=== PATIENT | male | born 1945 | race Caucasian/White ===

== ENCOUNTER 2017-03-10 18:46 | Inpatient (IN) | payer MEDICARE, OTHER ==
[~2017-03-10] VITALS: Ht 175.3 cm; Wt 91.7 kg
--- NOTE | 2017-03-10 19:00 | NUR ---
to bed [facility] c/o syncope and R knee, R ankle pain per emt transport report. per report pt has been falling due to unsteady gait. pt aaox3 no acute distress noted, resp even and unlabored. place pt on cardiac monitoring, continuous pox. pending er md kyle.
[2017-03-10 19:13] LABS: BASOPHILS % (AUTO) 0.5 % (0.0-2.0); EOSINOPHILS # (AUTO) 0.3 /CMM (0.0-0.7); EOSINOPHILS % (AUTO) 3.6 % (0.0-6.0); HEMATOCRIT 41 % (39-51); HEMOGLOBIN 13.7 g/dL (13.5-17.5); LYMPHOCYTES # (AUTO) 2.1 /CMM (0.8-4.8); LYMPHOCYTES % (AUTO) 28.4 % (20.0-44.0); MEAN CORPUSCULAR HEMOGLOBIN 31 PG (26.0-33.0); MEAN CORPUSCULAR HGB CONC 34 g/dl (31.0-36.0); MEAN CORPUSCULAR VOLUME 92 fL (80-96); MONOCYTES # (AUTO) 0.6 /CMM (0.1-1.30); MONOCYTES % (AUTO) 8.1 % (2.0-12.0); NEUTROPHILS # (AUTO) 4.4 /CMM (1.8-8.9); NEUTROPHILS % (AUTO) 59.4 % (43.0-81.0); PLATELET COUNT (AUTO) 199 /CMM (150-450); RDW COEFFICIENT OF VARIATION 13.4 (11.5-15.0); RED BLOOD CELL COUNT(AUTO) 4.42 MIL/uL (4.5-6.0); WHITE BLOOD COUNT (AUTO) 7.5 K/uL (4.3-11.0)
[2017-03-10] MEDS ORDERED: GABA-534 PO (19:22)
[2017-03-10] MEDS ORDERED: AMMO385C4 TP (19:22)
[2017-03-10] MEDS ORDERED: BENZ1TAB7 PO (19:22)
[2017-03-10] MEDS ORDERED: ESOM40CA PO (19:22)
[2017-03-10] MEDS ORDERED: ARIP2TAB9 PO (19:22)
[2017-03-10] MEDS ORDERED: MELO-270 PO (19:22)
[2017-03-10] MEDS ORDERED: TEMA15CA PO (19:22)
[2017-03-10] MEDS ORDERED: ESCI10TA PO (19:22)
[2017-03-10] MEDS ORDERED: ACET-2605 PO (19:22)
[2017-03-10] MEDS ORDERED: ASPI-991 PO (19:22)
[2017-03-10] MEDS ORDERED: TRAM50TA2 PO (19:22)
[2017-03-10] MEDS ORDERED: LOSA100T15 PO (19:22)
[2017-03-10] MEDS ORDERED: SAXA5TAB PO (19:22)
[2017-03-10] MEDS ORDERED: DULO30CA2 PO (19:22)
[2017-03-10] MEDS ORDERED: ATOR10TA PO (19:22)
[2017-03-10] MEDS ORDERED: METF500T7 PO (19:22)
[2017-03-10 19:33] LABS: CALCIUM, SERUM 8.5 mg/dL (8.5-10.1); CARBON DIOXIDE 26 mmol/L (21-32); CHLORIDE 105 mmol/L (98-107); CREATININE 1.3 mg/dL (0.6-1.3); GLUCOSE 206 mg/dL (74-106); POTASSIUM 4.3 mmol/L (3.5-5.1); SODIUM SERUM 141 mmol/L (136-145); UREA NITROGEN, BLOOD 20 mg/dL (7-18)
[2017-03-10 19:40] LABS: ALANINE AMINOTRANSFERASE 20 U/L (12-78); ALBUMIN 3.6 g/dL (3.4-5.0); ALKALINE PHOSPHATASE 221 U/L (46-116); ASPARTATE AMINOTRANSFERASE 14 U/L (15-37); BILIRUBIN,DIRECT 0.1 mg/dL (0.0-0.2); BILIRUBIN,TOTAL 0.5 mg/dL (0.2-1.0); TOTAL PROTEIN, SERUM 6.8 g/dL (6.4-8.2); TROPONIN I < 0.017 ng/mL (0.00-0.056)
[2017-03-10 19:42] LABS: INR 0.95 (0.87-1.13); PROTHROMBIN TIME 10.1 SECS (9.5-12.7)
--- NOTE | 2017-03-10 20:12 | NUR ---
ct result received. er md made aware. pending disposition.
--- NOTE | 2017-03-10 20:17 | NUR ---
lower extremity duplex done.
--- NOTE | 2017-03-10 20:22 | NUR ---
PANEL CALLED FOR ADMIT. AWAITING CALL FROM ADMIT
--- NOTE | 2017-03-10 20:23 | NUR ---
report called to telephone sales agentarabella crump. pending hospital admission.
[2017-03-10 20:35] VITALS: BP 115/69
--- NOTE | 2017-03-10 20:35 | NUR ---
RN NOTES ADMITTED A 71 YEARS OLD, MALE PT FROM ER VIA [facility] WITH PRIMARY DIAGNOSIS OF SYNCOPE UNDER DR LEI. PT ALERT AND ORIENTED X3, PAIN ON RIGHT KNEE AND ANKLE AT TOLERABLE LEVEL AT THIS TIME. DENIES CHEST PAIN, NO SOB, NOT IN DISTRESS, ON ROOM AIR WITH GOOD SATURATION. ATTACHED TO TELE MONITOR WHICH READS SINUS RHYTHM WITH HEART RATE AT 66. VITAL SIGNS STABLE, AFEBRILE, DENIES NAUSEA AND VOMITING. INITIAL PHYSICAL ASSESSMENT DONE, SKIN CLEAR AND INTACT. PT ABLE TO TRANSFER FROM [facility] TO BED WITH MINIMAL ASSIST. KEPT BED IN THE LOWEST POSITION, LOCKED, SIDE RAILS X2 UP, BED ALARM ON, WITH CALL LIGHT WITHIN REACH. KEPT COMFORTABLE AND ATTENDED. WILL CONTINUE TO MONITOR PT. CALLED DR LEI FO ADMITTING ORDERS, AWAITING FOR RETURN CALL.
[2017-03-10 21:00] VITALS: BP 115/69
[2017-03-10] MEDS ORDERED: TRAMADOL HCL 50 MG TABLET PO PRN (22:30)
[2017-03-10] MEDS ORDERED: TEMAZEPAM 15 MG CAPSULE PO PRN (22:30)
--- NOTE | 2017-03-10 22:30 | NUR ---
RN NOTES ADMISSION ORDERS RECEIVED, NOTED AND CARRIED OUT.
[2017-03-10] MEDS ORDERED: IV 1/2NS 1000 ML 1,000 ML IV ONE (22:44)
[2017-03-10] MEDS ORDERED: IV SET PRIMARY PUMP SET 1 EA INFUS.SET MC ONE (22:44)
[2017-03-10] MEDS: IV 1/2NS 1000 ML 1,000 ML IV PRN (22:50)
[2017-03-10] MEDS ORDERED: POLYETHYLENE GLYCOL 3350 17 GM POWD.PACK PO PRN (23:00)
[2017-03-10] MEDS ORDERED: DEXTROSE 50%-WATER 50 ML DISP.SYRIN IV PRN (23:00)
[2017-03-10] MEDS ORDERED: MORPHINE SULFATE INJ 2 MG/ML DISP.SYRIN IV PRN (23:00)
[2017-03-10] MEDS ORDERED: ZOLPIDEM TARTRATE 5 MG TABLET PO PRN (23:00)
--- NOTE | 2017-03-10 23:30 | NUR ---
RN NOTES VISITED BY DR LEI, SEEN AND EXAMINED PT. NO NEW ORDERS MADE.
[2017-03-10] MEDS ORDERED: ACETAMINOPHEN 325 MG TABLET ONE (23:34)
[2017-03-10] MEDS: ACETAMINOPHEN 325 MG TABLET PO PRN (23:38)
[2017-03-11] VITALS (10 sets, daily range): BP systolic 120–152; BP diastolic 71–92
[2017-03-11] MEDS: BLOOD SUGAR DIAGNOSTIC 1 EACH STRIP IN SCH ×4 (06:41→21:26)
[2017-03-11] MEDS: INSULIN REGULAR, HUMAN 100 UNIT/ML 3 ML VIAL SQ PRN ×4 (06:44→21:29)
--- NOTE | 2017-03-11 06:44 | NUR ---
RN NOTES BLOOD SUGAR CHECKED 189MG/DL, 3 UNITS REGULAR INSULIN GIVEN SUBCU.
--- NOTE | 2017-03-11 07:13 | NUR ---
RN NOTES PT AWAKE, HOB ELEVATED, NO SOB, NOT IN DISTRESS , ON ROOM AIR TOLERATED WELL. VITAL SIGNS STABLE, NO COMPLAIN OF PAIN, NAUSEA AND VOMITING NOTED. NO EPISODE OF SYNCOPE NOTED. TELEMONITOR READS SINUS RHYTHM AT 68. ALL NEEDS ATTENDED. WILL ENDORSE TO MORNING RN FOR CONTINUITY OF CARE.
--- NOTE | 2017-03-11 07:30 | NUR ---
CLUB FORMER AM NOTES PT IN BED, ALERT AND ORIENTED X3, ON RA, NAD, NO SOB, RESPIRATION UNLABORED, TELEMETRRY READS, SR HR 60, NO CHEST PAIN/DISCOMFORT, RH 20G WITH NS AT 70 ML/HR INFUSING WELL, SITE CLEAR. KEPT BED IN THE LOWEST POSITION, LOCKED, SIDE RAILS X2 UP, BED ALARM ON, WITH CALL LIGHT WITHIN REACH. KEPT COMFORTABLE AND ATTENDED. WILL CONTINUE TO MONITOR PT.
[2017-03-11 07:50] LABS: BASOPHILS % (AUTO) 0.7 % (0.0-2.0); EOSINOPHILS # (AUTO) 0.2 /CMM (0.0-0.7); EOSINOPHILS % (AUTO) 4.6 % (0.0-6.0); HEMATOCRIT 38 % (39-51); HEMOGLOBIN 12.8 g/dL (13.5-17.5); LYMPHOCYTES # (AUTO) 1.3 /CMM (0.8-4.8); LYMPHOCYTES % (AUTO) 30.3 % (20.0-44.0); MEAN CORPUSCULAR HEMOGLOBIN 31 PG (26.0-33.0); MEAN CORPUSCULAR HGB CONC 34 g/dl (31.0-36.0); MEAN CORPUSCULAR VOLUME 92 fL (80-96); MONOCYTES # (AUTO) 0.4 /CMM (0.1-1.30); MONOCYTES % (AUTO) 9.2 % (2.0-12.0); NEUTROPHILS # (AUTO) 2.4 /CMM (1.8-8.9); NEUTROPHILS % (AUTO) 55.2 % (43.0-81.0); PLATELET COUNT (AUTO) 158 /CMM (150-450); RDW COEFFICIENT OF VARIATION 13.7 (11.5-15.0); RED BLOOD CELL COUNT(AUTO) 4.12 MIL/uL (4.5-6.0); WHITE BLOOD COUNT (AUTO) 4.3 K/uL (4.3-11.0)
[2017-03-11 08:07] LABS: TROPONIN I < 0.017 ng/mL (0.00-0.056)
[2017-03-11 08:16] LABS: ALANINE AMINOTRANSFERASE 21 U/L (12-78); ALBUMIN 3.2 g/dL (3.4-5.0); ALKALINE PHOSPHATASE 207 U/L (46-116); ASPARTATE AMINOTRANSFERASE 15 U/L (15-37); B-TYPE NATRIURETIC PEPTIDE 23 PG/ML (0-125); BILIRUBIN,TOTAL 0.5 mg/dL (0.2-1.0); CALCIUM, SERUM 8.5 mg/dL (8.5-10.1); CARBON DIOXIDE 26 mmol/L (21-32); CHLORIDE 108 mmol/L (98-107); CREATININE 1.1 mg/dL (0.6-1.3); GLUCOSE 191 mg/dL (74-106); MAGNESIUM 1.6 mg/dL (1.8-2.4); PHOSPHORUS 3.2 mg/dL (2.5-4.9); POTASSIUM 4.2 mmol/L (3.5-5.1); SODIUM SERUM 142 mmol/L (136-145); TOTAL PROTEIN, SERUM 6.1 g/dL (6.4-8.2); UREA NITROGEN, BLOOD 18 mg/dL (7-18)
[2017-03-11] MEDS: DOCUSATE SODIUM 100 MG CAPSULE PO SCH ×2 (09:09→17:19)
[2017-03-11] MEDS: MELOXICAM 7.5 MG TABLET PO SCH (09:09)
[2017-03-11] MEDS: ASPIRIN EC 81 MG TABLET.DR PO SCH (09:09)
[2017-03-11] MEDS: GABAPENTIN 300 MG CAPSULE PO SCH ×3 (09:09→17:19)
[2017-03-11] MEDS: PANTOPRAZOLE 40 MG TABLET.DR PO SCH (09:09)
[2017-03-11] MEDS: ESCITALOPRAM OXALATE (10 MG) 10 MG TABLET PO SCH (09:09)
--- NOTE | 2017-03-11 09:30 | NUR ---
RADIO DISC JOCKEY NOTES SEEN BY DR. ROSSI. ADMINISTERED DUE MEDS.
[2017-03-11 10:29] LABS: CHOLESTEROL 113 mg/dL (<200); HDL CHOLESTEROL 28 mg/dL (40-60); LDL 69 mg/dL (0-99); THYROID STIMULATING HORMONE 1.282 uIU/mL (0.358-3.74); TRIGLYCERIDES 89 mg/dL (30-150)
[2017-03-11] MEDS ORDERED: SECONDARY IV SET 1 EA INFUS.SET MC ONE (11:52)
[2017-03-11] MEDS: Magnesium 1GM/D5W 100ML PREMIX 100 ML IV SCH ×2 (12:00→13:45)
[2017-03-11] MEDS: IV 1/2NS 1000 ML 1,000 ML IV PRN (12:01)
--- NOTE | 2017-03-11 12:09 | NUR ---
RESIDENTIAL INSTRUCTOR NOTES STARTED MAGNESIUM BAG #1. ACCUCHECK. BS 195 MG/DL. ADMINISTERED 3 UNITS HUM R PER SLIDING SCALE.
--- NOTE | 2017-03-11 13:45 | NUR ---
QUALITY REVIEW SPECIALIST NOTES ORTHOSTATIC BP - LYING 136/81 ; SITTING 152/92; STANDING 150/91
--- NOTE | 2017-03-11 13:58 | NUR ---
MS RN NOTES STARTED MAGNESIUM BAG #2.
--- NOTE | 2017-03-11 17:22 | NUR ---
RN NOTES ACCUCHECK. BS 175 MG/DL. ADMINISTERED 3 UNITS HUM R PER SLIDING SCALE.
--- NOTE | 2017-03-11 18:15 | NUR ---
BUTADIENE CONVERTER OPERATOR CLOSING NOTES PT IN BED, ALERT AND ORIENTED X3, ON RA, NAD, NO SOB, RESPIRATION UNLABORED, TELEMETRY READS, SR HR 70s, NO CHEST PAIN/DISCOMFORT, RH 20G WITH NS AT 70 ML/HR INFUSING WELL, SITE CLEAR. KEPT BED IN THE LOWEST POSITION, LOCKED, SIDE RAILS X2 UP, BED ALARM ON, WITH CALL LIGHT WITHIN REACH. KEPT COMFORTABLE AND ATTENDED. ALL NEEDS MET. MADE COMFORTABLE. WILL ENDORSE TO NEXT SHIFT FOR LEONID.
--- NOTE | 2017-03-11 19:10 | NUR ---
RN NOTES RECEIVED PT AWAKE, APPEARS COMFORTABLE IN BED, NO SOB, NOT IN DISTRESS, ON ROOM AIR WITH GOOD SATURATION. PT ALERT AND ORIENTED X3, DENIES ANY PAIN AND DISCOMFORT AT THIS TIME. IV ACCESS ON RIGHT HAND PATENT AND INTACT WITH ONGOING IVF INFUSING WELL. FALL PRECAUTION OBSERVED, KEPT COMFORTABLE AND ATTENDED. WILL CONTINUE TO MONITOR PT.
[2017-03-11] MEDS: BENZTROPINE MESYLATE (1 MG) 1 MG TABLET PO SCH (21:27)
[2017-03-11] MEDS: ATORVASTATIN 10 MG TABLET PO SCH (21:27)
[2017-03-11] MEDS: ACETAMINOPHEN 325 MG TABLET PO PRN (21:32)
--- NOTE | 2017-03-11 21:32 | NUR ---
RN NOTES PT COMPLAINS OF HEADACHE, TYLENOL 650 MG TAB GIVEN PO AND TOLERATED WELL. WILL CONTINUE TO MONITOR PT.
[2017-03-12] MEDS: IV 1/2NS 1000 ML 1,000 ML IV PRN ×2 (05:35→22:03)
[2017-03-12] MEDS: BLOOD SUGAR DIAGNOSTIC 1 EACH STRIP IN SCH ×4 (06:30→21:57)
[2017-03-12] MEDS: INSULIN REGULAR, HUMAN 100 UNIT/ML 3 ML VIAL SQ PRN ×4 (06:32→22:01)
[2017-03-12 06:47] LABS: CALCIUM, SERUM 7.8 mg/dL (8.5-10.1); CREATININE 1.1 mg/dL (0.6-1.3); MAGNESIUM 1.9 mg/dL (1.8-2.4)
--- NOTE | 2017-03-12 07:12 | NUR ---
RN NOTES PT AWAKE, APPEARS COMFORTABLE IN BED, DENIES ANY PAIN AND DISCOMFORT. VITAL SIGNS STABLE, AFEBRILE. DENIES CHEST PAIN, NO EPISODE OF NAUSEA AND VOMITING. NO EPISODE OF SYNCOPE. FALL PRECAUTION OBSERVED. NO SIGNIFICANT CHANGE IN CONDITION NOTED . WILL ENDORSE FOR CONTINUITY OF CARE.
[2017-03-12 08:00] VITALS: BP 136/71
--- NOTE | 2017-03-12 08:00 | NUR ---
MS/RN OPENING NOTES RECEIVED PT. IN BED AWAKE, A&OX4. NO SOB, NO C/O PAIN OR ANY DISCOMFORT. NO S/S OF ACUTE DISTRESS. BED IS IN LOW POSITION, 2 SIDE RAILS UP, CALL LIGHT WITHIN REACH, AND INSTRUCTED TO CALL FOR ASSISTANCE.
[2017-03-12] MEDS: ASPIRIN EC 81 MG TABLET.DR PO SCH (09:50)
[2017-03-12] MEDS: PANTOPRAZOLE 40 MG TABLET.DR PO SCH (09:50)
[2017-03-12] MEDS: MELOXICAM 7.5 MG TABLET PO SCH (09:50)
[2017-03-12] MEDS: DOCUSATE SODIUM 100 MG CAPSULE PO SCH ×2 (09:50→18:04)
[2017-03-12] MEDS: GABAPENTIN 300 MG CAPSULE PO SCH ×3 (09:50→18:03)
[2017-03-12] MEDS: ESCITALOPRAM OXALATE (10 MG) 10 MG TABLET PO SCH (09:51)
--- NOTE | 2017-03-12 10:00 | NUR ---
MS/RN MD VISIT PT. WAS SEEN AND EXAMINED BY DR. ROSSI. NO NEW ORDERS GIVEN AT THIS TIME.
--- NOTE | 2017-03-12 14:15 | NUR ---
MS/RN CARDIO F/U SEEN AND EXAMINED BY DR. PULIDO, WITH ORDER. ORDER ACKNOWLEDGED.
--- NOTE | 2017-03-12 15:25 | NUR ---
MS/RN NOTES VAUGHN ANTHONY CALLED AND REPORTED POSITIVE MRSA RESULT IN NARES. CHARGE NURSE MADE AWARE. ORDER RECEIVED TO APPLY BACTROBAN OINTMENT BILATERAL NOSTRILS. PT. EDUCATED ABOUT MRSA.
[2017-03-12 16:00] VITALS: BP 128/79
--- NOTE | 2017-03-12 16:30 | NUR ---
MS/RN NOTES EEG IS BEING PERFORMED AT THIS TIME AT BEDSIDE.
--- NOTE | 2017-03-12 17:24 | NUR ---
Per request- SNF referral faxed to [facility] [phone],spoke with patient, he want to return to the [facility] [phone], spoke with Christopher at the [facility], bed is available when patient is discharge. Addendum: 03/12/17 at 1727 by CHRIS BRUNNER RN Amended: Links added.
[2017-03-12] MEDS: MUPIROCIN OINT 2% 22 GM TUBE SCH ×2 (18:03→21:58)
--- NOTE | 2017-03-12 18:50 | NUR ---
MS/RN CLOSING NOTE PT. IS RESTING COMFORTABLE IN BED. NO CHANGE IN CONDITION. NEEDS ATTENDED. INSTRUCTED TO CALL FOR ASSISTANCE. NO ACUTE DISTRESS. WILL ENDORSE TO NEXT SHIFT ACCORDINGLY.
--- NOTE | 2017-03-12 19:00 | NUR ---
RN NOTE RECEIVED REPORT. PT AAOX3, NO C/O DIZZINESS/N/V. DENIES SOB/CP. BREATHING NON-LABORED AND EVEN, IV INTACT AND PATENT, TOLERATING FLUIDS WELL. INSTRUCTED TO USE CALL LIGHT WHEN IN NEED OF ASSISTANCE. WILL CONT TO MONITOR.
[2017-03-12 20:00] VITALS: BP 128/85
--- NOTE | 2017-03-12 20:01 | NUR ---
spoke with patient regarding short term SNF and patient agreed to go to [facility] [phone] upon discharge. Spoke with Abbie- admissions , patient is accepted and bed is available. Addendum: 03/12/17 at 2001 by CHRIS BRUNNER RN Amended: Links added.
[2017-03-12] MEDS: BENZTROPINE MESYLATE (1 MG) 1 MG TABLET PO SCH (21:57)
[2017-03-12] MEDS: ATORVASTATIN 10 MG TABLET PO SCH (21:57)
--- NOTE | 2017-03-13 02:33 | NUR ---
RN NOTE PT RESTING COMFORTABLY IN BED WITH EYESE CLOSED. NO DISTRESS NOTED. WILL CONT TO MONITOR.
--- NOTE | 2017-03-13 06:41 | NUR ---
RN NOTE NO SIGNIFICANT CHANGES OVERNIGHT. PT SLEPT WELL. DENIES ANY PAIN OR DISCOMFORT. NO CP/N/V/DIZZINESS. IV INTACT AND PATENT AT NEW SITE - WRIST #22-TOLERATING FLUIDS WELL. KEPT CLEAN AND COMFORTABLE, CALL LIGHT IN REACH. WILL F/U WITH DAY SHIFT FOR LEONID. D/C PLANNING
[2017-03-13] MEDS: BLOOD SUGAR DIAGNOSTIC 1 EACH STRIP IN SCH ×3 (06:47→17:27)
[2017-03-13] MEDS: INSULIN REGULAR, HUMAN 100 UNIT/ML 3 ML VIAL SQ PRN ×3 (06:47→17:33)
--- NOTE | 2017-03-13 07:18 | NUR ---
RN NOTE RECEIVED REPORT. PT IN STABLE CONDITION, NO C/O OR S/S OF ANY DISTRESS AT THIS. VS STABLE. AMBULANCE READY TO TRANSFER PATIENT. PAPERWORK AND D/C INSTRUCTIONS COMPLETED PER DAY SHIFT RNLove KLEIN D/C'ED. Addendum: 03/13/17 at 1923 by VONNIE ESCALONA RN WRONG TIME
--- NOTE | 2017-03-13 07:30 | NUR ---
MS/RN OPENING NOTE PT. IS IN BED A&OX4. NO SOB, AND NO ACUTE DISTRESS. PT. HAS IV FLUIDS RUNNING AT 70 ML/HR. BED IN LOW POSITION, 2 SIDE RAILS UP, CALL LIGHT WITHIN REACH, AND ALL NEEDS MET. WILL CONTINUE TO ASSESS AND MONITOR.
[2017-03-13 08:00] VITALS: BP 124/87
[2017-03-13] MEDS: MUPIROCIN OINT 2% 22 GM TUBE SCH (11:06)
[2017-03-13] MEDS: ESCITALOPRAM OXALATE (10 MG) 10 MG TABLET PO SCH (11:07)
[2017-03-13] MEDS: PANTOPRAZOLE 40 MG TABLET.DR PO SCH (11:07)
[2017-03-13] MEDS: DOCUSATE SODIUM 100 MG CAPSULE PO SCH (11:07)
[2017-03-13] MEDS: ASPIRIN EC 81 MG TABLET.DR PO SCH (11:07)
[2017-03-13] MEDS: GABAPENTIN 300 MG CAPSULE PO SCH ×2 (11:07→14:01)
[2017-03-13] MEDS: MELOXICAM 7.5 MG TABLET PO SCH (11:07)
[2017-03-13 16:00] VITALS: BP 140/88
--- NOTE | 2017-03-13 19:15 | NUR ---
RN NOTE RECEIVED REPORT. PT IN STABLE CONDITION, NO C/O OR S/S OF ANY DISTRESS AT THIS. VS STABLE. AMBULANCE READY TO TRANSFER PATIENT. PAPERWORK AND D/C INSTRUCTIONS COMPLETED PER DAY SHIFT RN. IV D/C'ED
--- NOTE | 2017-03-13 19:20 | NUR ---
RN NOTE PT DISCHARGED. LEFT VIA AMBULANCE WITH ALL BELONGINGS IN STABLE CONDITION.
== END 2017-03-13 19:30 | DRG 91 ==
LOC: ER 18:46 → MED 20:30 → TELE 03-11 01:11 → MED 03-11 22:28
DX: G90.1 Familial dysautonomia [Riley-Day] (principal); N17.0 Acute kidney failure with tubular necrosis; F20.0 Paranoid schizophrenia; G90.8 Other disorders of autonomic nervous system; I95.2 Hypotension due to drugs; E11.42 Type 2 diabetes mellitus with diabetic polyneuropathy; E11.65 Type 2 diabetes mellitus with hyperglycemia; E78.5 Hyperlipidemia, unspecified; E86.0 Dehydration; I10 Essential (primary) hypertension; E66.9 Obesity, unspecified; Z68.29 Body mass index [BMI] 29.0-29.9, adult; F32.9 Major depressive disorder, single episode, unspecified; R56.9 Unspecified convulsions; T43.95XA Adverse effect of unspecified psychotropic drug, initial encounter; Y92.89 Other specified places as the place of occurrence of the external cause; I70.0 Atherosclerosis of aorta
CPT/HCPCS: 36415; 70450-TC; 71010-TC; 80048-TC; 80053-TC; 80061-TC; 80076-TC; 82962-TC; 83735-TC; 83880; 84100-TC; 84443-TC; 84484-TC; 85025-TC; 85378-TC; 85730-TC; 87081-TC; 93307-TC; 93880-TC; 93971-TC; 95819-TC; 97001-TC; A4606; J1815; J3475; J3490; Z7610